=== PATIENT | female | born 1985 | race Caucasian/White ===

== ENCOUNTER 2020-08-26 06:13 | Emergency (ER) | payer OTHER ==
[~2020-08-26 06:13] MED LIST: BACTRIM DS TAB1 EACH PO; K-DUR20 MEQ PO; ZOFRAN4 MG PO
[2020-08-26 06:58] LABS: BASOPHIL 0.4 % (0-2); EOSINOPHIL 1.5 % (0-5); HCT 37.8 % (37.0-47.0); HGB 12.7 g/dl (12.5-16.0); LYMPHOCYTE 21.9 % (15-48); MCHC 33.6 g/dL (32.0-36.0); MCV 83.4 fL (78.0-100.0); MONOCYTE 5.7 % (0-12); MPV 9.9 fL (6.0-9.5); NEUTROPHIL 70.2 % (41-80); NRBC 0; PLT 333 K/uL (150-400); RBC 4.53 M/uL (4.20-5.40); RDW 12.8 % (11.5-14.0); WBC 11.9 K/uL (4.0-10.5)
[2020-08-26 07:25] LABS: ALBUMIN 3.7 g/dL (3.4-5.0); BILIRUBIN - TOTAL 0.3 mg/dL (0.2-1.0); BUN/CREAT RATIO (CALC) 13.3 RATIO; CREATININE 0.83 mg/dL (0.51-0.95); GLOBULIN (CALCULATION) 3.3 g/dL
[2020-08-26] MEDS ORDERED: AZITHROMYCIN250 MG PO (07:44)
== END 2020-08-26 07:58 | disposition home or self-care (01) ==
LOC: FER 06:13
PROVIDERS: Emergency Medicine
DX: J20.9 Acute bronchitis, unspecified (principal); Z20.822 Contact with and (suspected) exposure to COVID-19
CPT/HCPCS: 36415; 71045; 80053; 84484; 85025; 93005; J1885; U0002